=== PATIENT | female | born 1940 | race Caucasian/White ===

== ENCOUNTER 2018-10-22 14:43 | Inpatient (IN) ==
[2018-10-22] MEDS ORDERED: ONDANSETRON 4 MG/2 ML VIAL IV ONE (15:50)
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
[2018-10-22] MEDS ORDERED: 0.9 % SODIUM CHLORIDE 1,000 ML IV ONE (16:05)
[2018-10-22] MEDS: HYDROmorphone 2 MG/ML VIAL IV PRN ×2 (16:05→17:18)
[2018-10-22 16:42] LABS: Basophils # (Auto) 0 K/mcL (0.0-0.3); Basophils % (Auto) 0.3 % (0.0-2.0); Eosinophils # (Auto) 0 K/mcL (0.0-0.7); Eosinophils % (Auto) 0.1 % (0.0-7.0); Granulocytes % (Auto) 78.1 % (38.0-78.0); Hemoglobin 15.1 g/dL (12.0-15.0); Lymphocytes % (Auto) 14.1 % (15.5-49.0); Mean Cell Volume 94.9 fL (80.0-100.0); Mean Corpuscular HGB Conc 33.5 g/dL (31.0-36.0); Mean Platelet Volume 7.7 fL (7.4-10.4); Monocytes % (Auto) 7.4 % (1.0-12.0); Platelet Count 219 K/mcL (140-440); RBC 4.74 M/mcL (4.00-5.20); Red Cell Distribution Width 12.6 % (11.5-14.5); WBC 14.2 K/mcL (4.5-11.0)
[2018-10-22 17:01] LABS: ALT/SGPT 18 U/l (0-40); AST/SGOT 15 U/l (0-37); Albumin 3.6 gm/dL (3.2-5.2); Albumin/Globulin Ratio 1.2 (1.0-2.3); Alkaline Phosphatase 70 U/L (39-117); Bilirubin,Total 0.4 mg/dL (0.0-1.0); Blood Urea Nitrogen 15 mg/dl (8-23); C-Reactive Protein 10.7 mg/dl (0.0-0.8); Calcium 8.6 mg/dl (8.6-10.4); Carbon Dioxide 26 mmol/L (22-30); Chloride 99 mmol/L (96-108); Globulin 3.1 gm/dL (2.2-3.7); Glomerular Filtration Rate 84; Glucose 99 mg/dL (70-105)
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
[2018-10-22 19:43] LABS: Appearance,Urine CLEAR; Bacteria,Urine FEW /hpf (0); Bilirubin,Urine NEG (NEG); Color,Urine YELLOW; Culture Indicated,Urine YES; Glucose,Urine (UA) NEGATIVE (NEG); Ketones,Urine 5/TR mg/dL (NEG); Leukocyte Esterase,Urine 250 /uL (NEG); Mucus,Urine FEW /hpf (0); Nitrate,Urine NEG (NEG); Protein,Urine NEG (NEG); Specific Gravity,Urine 1.018 (1.000-1.035); Urine Blood 0.2 mg/dL (<0.03); Urine RBC 5 /hpf (0-1); Urine Squamous Epithelial Cell 3 /hpf (0-4); Urine Transitional Epi Cells < 1 /hpf (0-2); Urine WBC 18 /hpf (0-4); Urobilinogen,Urine NEG (NEG)
[2018-10-22] MEDS ORDERED: 0.9 % SODIUM CHLORIDE 1,000 ML IV SCH (19:46)
[2018-10-22] MEDS ORDERED: ACETAMINOPHEN 1,000 MG/100 ML BOTTLE IV PRN (19:46)
[2018-10-22] MEDS ORDERED: MAGNESIUM HYDROXIDE 30 ML ORAL.SUSP PO PRN (19:46)
[2018-10-22] MEDS ORDERED: ACETAMINOPHEN 325 MG TABLET PO PRN (19:46)
[2018-10-22] MEDS ORDERED: POTASSIUM CHLORIDE 20 MEQ PACKET PO PRN (19:46)
[2018-10-22] MEDS ORDERED: FLEETS ADULT ENEMA PR PRN (19:46)
[2018-10-22] MEDS ORDERED: MAGNESIUM SULFATE 2 GM/50 ML BAG IV PRN (19:46)
[2018-10-22] MEDS ORDERED: ONDANSETRON 4 MG/2 ML VIAL IV PRN (19:46)
[2018-10-22] MEDS ORDERED: HYDROcodone/APAP 5/325MG TABLET PO PRN (19:46)
[2018-10-22] MEDS ORDERED: SENNOSIDES/DOCUSATE SODIUM 1 TAB TABLET PO SCH (21:00)
[2018-10-22] MEDS: HEPARIN 5,000 UNIT/ML VIAL SQ SCH (21:01)
[2018-10-22] MEDS: CYANOCOBALAMIN (VITAMIN B-12) 500 MCG TABLET PO SCH (21:01)
[2018-10-22] MEDS: 0.9 % SODIUM CHLORIDE 10 ML SYRINGE IV SCH (21:02)
[2018-10-22] MEDS: DOCUSATE SODIUM 100 MG CAPSULE PO SCH (21:02)
[2018-10-23] MEDS: 0.9 % SODIUM CHLORIDE 10 ML SYRINGE IV SCH ×3 (05:39→20:45)
[2018-10-23 06:02] LABS: INR 1.1 (0.9-1.1); Prothrombin Time 14.2 sec (11.9-14.5)
[2018-10-23 06:21] LABS: ALT/SGPT 13 U/l (0-40); AST/SGOT 12 U/l (0-37); Albumin 2.8 gm/dL (3.2-5.2); Alkaline Phosphatase 68 U/L (39-117); Bilirubin,Direct < 0.2 mg/dL (0.0-0.3); Bilirubin,Total 0.5 mg/dL (0.0-1.0); Blood Urea Nitrogen 9 mg/dl (8-23); Calcium 8.3 mg/dl (8.6-10.4); Carbon Dioxide 24 mmol/L (22-30); Chloride 105 mmol/L (96-108); Globulin 2.8 gm/dL (2.2-3.7); Glomerular Filtration Rate 88; Glucose 99 mg/dL (70-105); Lactate Dehydrogenase 218 U/L (94-250); Phosphorous 3.1 mg/dL (2.7-4.5); Triglycerides 88 mg/dl (<150); Uric Acid 2.9 mg/dL (2.5-8.0)
[2018-10-23 07:46] LABS: Prealbumin 7.9 mg/dl (20-40)
[2018-10-23 07:48] LABS: Estimated Average Glucose(eAG) 123 mg/dL; Hemoglobin A1C 5.9 % HGB (4.0-6.0)
[2018-10-23 07:56] LABS: Thyroid Stimulating Hormone 0.78 uIU/ml (0.27-5.01)
[2018-10-23] MEDS: DOCUSATE SODIUM 100 MG CAPSULE PO SCH ×2 (08:34→20:44)
[2018-10-23] MEDS: CYANOCOBALAMIN (VITAMIN B-12) 500 MCG TABLET PO SCH ×2 (08:34→20:44)
[2018-10-23] MEDS: HEPARIN 5,000 UNIT/ML VIAL SQ SCH ×2 (08:49→20:44)
--- NOTE | 2018-10-23 08:52 | XRay Report ---
CLINICAL INFORMATION: pre-op COMPARISON: None. FINDINGS: Heart size, mediastinum and pulmonary vessels are normal. The lung volumes are elevated suggestive of COPD. Small bilateral pleural effusions noted. There is minor bibasilar atelectasis, but no shweta infiltrates IMPRESSION: Probable COPD and small bilateral pleural effusions. Interpreted and Authenticated by: Jasmeet Bianchi 10/23/18
[2018-10-23] MEDS ORDERED: FOLIC ACID 1 MG TABLET PO SCH (09:00)
[2018-10-23] MEDS ORDERED: THIAMINE 100 MG TABLET PO SCH (09:00)
[2018-10-23] MEDS ORDERED: MULTIVIT,THER IRON,CA,FA & MIN 1 TABLET PO SCH (09:00)
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
[2018-10-23] MEDS ORDERED: SILVER SULFADIAZINE CREAM.TOP 25GM TOPICAL ONE ×2 (11:49→14:11)
[2018-10-23] MEDS ORDERED: VANCOMYCIN 1,000 MG in 0.9 % SODIUM CHLORIDE 250 ML IV ONE (11:57)
[2018-10-23] MEDS ORDERED: LIDOCAINE HCL/PF 100 MG/5 ML SYRINGE IV ONE (12:05)
[2018-10-23] MEDS ORDERED: KETAMINE 100 MG/ML ML IV ONE (12:05)
[2018-10-23] MEDS ORDERED: GLYCOPYRROLATE 0.2 MG/ML VIAL IV ONE (12:05)
[2018-10-23] MEDS ORDERED: PROPOFOL 200 MG/20 ML VIAL IV ONE (12:05)
[2018-10-23] MEDS ORDERED: fentaNYL 100 MCG/2 ML VIAL IV ONE (12:05)
[2018-10-23] MEDS ORDERED: MIDAZOLAM 2 MG/2 ML VIAL IV ONE (12:05)
[2018-10-23] MEDS ORDERED: PHENYLEPHRINE 10 MG/ML VIAL IV ONE (12:05)
[2018-10-23] MEDS ORDERED: ONDANSETRON 4 MG/2 ML VIAL IV ONE (12:05)
[2018-10-23] MEDS: cefTRIAXone 1 GM VIAL IV ONE ×2 (12:40→14:14)
--- NOTE | 2018-10-23 12:56 | Brief Operative Note ---
Date of procedure: 10/23/18 Pre-op diagnosis: Infected knott Chest, arms and buttocks Post-op diagnosis: same Procedure: Surgical debridement and tissue swab for c/s. LEFT buttock and under Left breast Grafts/Implants: No Anesthesia: GLMA Findings: About 15 % 2nd degree knott involving Left anterior arm. / Chest wall, breast and Right anterior chest and breast. About 2 - 3 % 2nd degree knott mainly Left buttock and perineal area and 1 % Right perineal area, BURN areas are around External Genitalia and anal orifice Complications: none Surgeon: Davon Dillard Estimated blood loss (cc): 5 Specimens Removed/Pathology: other Condition: stable Disposition: PACU (Operation well tolerated.)
[2018-10-23] MEDS ORDERED: ONDANSETRON 4 MG/2 ML VIAL IV PRN ×2 (13:07→14:11)
[2018-10-23] MEDS ORDERED: ACETAMINOPHEN 1,000 MG/100 ML BOTTLE IV ONE (13:07)
[2018-10-23] MEDS ORDERED: IPRATROPIUM/ALBUTEROL 3 ML AMPUL.NEB NEB PRN (13:07)
[2018-10-23] MEDS ORDERED: KETOROLAC 15 MG/ML VIAL IV PRN (13:07)
[2018-10-23] MEDS ORDERED: fentaNYL 100 MCG/2 ML VIAL IV PRN (13:07)
[2018-10-23] MEDS ORDERED: HYDROmorphone 2 MG/ML VIAL IV PRN (13:07)
[2018-10-23] MEDS ORDERED: METOPROLOL TARTRATE 5 MG/5 ML VIAL IV PRN (13:07)
[2018-10-23] MEDS ORDERED: LACTATED RINGERS 1,000 ML IV SCH (13:15)
[2018-10-23] MEDS: MEPERIDINE 25 MG/ML SYRINGE IV PRN ×2 (13:25→13:31)
[2018-10-23] MEDS ORDERED: POTASSIUM CHLORIDE 20 MEQ PACKET PO PRN (14:11)
[2018-10-23] MEDS ORDERED: MAGNESIUM SULFATE 2 GM/50 ML BAG IV PRN (14:11)
[2018-10-23] MEDS ORDERED: FLEETS ADULT ENEMA PR PRN (14:11)
[2018-10-23] MEDS ORDERED: ACETAMINOPHEN 325 MG TABLET PO PRN (14:11)
[2018-10-23] MEDS: 0.9 % SODIUM CHLORIDE 1,000 ML IV SCH (14:20)
[2018-10-23] MEDS: HYDROcodone/APAP 5/325MG TABLET PO PRN (18:55)
[2018-10-23] MEDS: SENNOSIDES/DOCUSATE SODIUM 1 TAB TABLET PO SCH (20:44)
[2018-10-23] MEDS: ACETAMINOPHEN 1,000 MG/100 ML BOTTLE IV PRN (20:45)
[2018-10-23] MEDS ORDERED: MAGNESIUM HYDROXIDE 30 ML ORAL.SUSP PO PRN (21:00)
[2018-10-24] MEDS: 0.9 % SODIUM CHLORIDE 10 ML SYRINGE IV SCH ×3 (04:30→20:05)
[2018-10-24] MEDS: MULTIVIT,THER IRON,CA,FA & MIN 1 TABLET PO SCH (08:16)
[2018-10-24] MEDS: CYANOCOBALAMIN (VITAMIN B-12) 500 MCG TABLET PO SCH ×2 (08:16→20:04)
[2018-10-24] MEDS: ASCORBIC ACID 500 MG TABLET PO SCH (08:16)
[2018-10-24] MEDS: THIAMINE 100 MG TABLET PO SCH (08:16)
[2018-10-24] MEDS: FOLIC ACID 1 MG TABLET PO SCH (08:16)
[2018-10-24] MEDS: DOCUSATE SODIUM 100 MG CAPSULE PO SCH ×2 (08:16→20:04)
[2018-10-24] MEDS: ZINC SULFATE 50 MG CAPSULE PO SCH (08:16)
[2018-10-24] MEDS: HEPARIN 5,000 UNIT/ML VIAL SQ SCH ×2 (08:17→20:04)
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
[2018-10-24] MEDS: 0.9 % SODIUM CHLORIDE 1,000 ML IV SCH (10:45)
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
[2018-10-24 15:25] LABS: Blood Urea Nitrogen 12 mg/dl (8-23); Carbon Dioxide 25 mmol/L (22-30); Chloride 103 mmol/L (96-108); Glomerular Filtration Rate 88; Glucose 175 mg/dL (70-105)
[2018-10-24 18:51] LABS: Appearance,Urine CLEAR; Bilirubin,Urine NEG (NEG); Color,Urine YELLOW; Culture Indicated,Urine NO; Glucose,Urine (UA) NEGATIVE (NEG); Ketones,Urine 5/TR mg/dL (NEG); Leukocyte Esterase,Urine NEG /uL (NEG); Nitrate,Urine NEG (NEG); Protein,Urine NEG (NEG); Specific Gravity,Urine 1.011 (1.000-1.035); Urine Blood NEG mg/dL (<0.03); Urobilinogen,Urine NEG (NEG)
[2018-10-24] MEDS: SENNOSIDES/DOCUSATE SODIUM 1 TAB TABLET PO SCH (20:04)
[2018-10-24] MEDS: ACETAMINOPHEN 1,000 MG/100 ML BOTTLE IV PRN (20:05)
[2018-10-25] MEDS: 0.9 % SODIUM CHLORIDE 10 ML SYRINGE IV SCH ×3 (04:13→21:23)
[2018-10-25 05:45] LABS: Basophils # (Auto) 0.1 K/mcL (0.0-0.3); Basophils % (Auto) 0.7 % (0.0-2.0); Eosinophils # (Auto) 0.2 K/mcL (0.0-0.7); Eosinophils % (Auto) 2.5 % (0.0-7.0); Granulocytes % (Auto) 53.9 % (38.0-78.0); Hematocrit 37.7 % (36.0-48.0); Hemoglobin 12.5 g/dL (12.0-15.0); Lymphocytes # (Auto) 2.3 K/mcL (1.5-4.8); Lymphocytes % (Auto) 32.2 % (15.5-49.0); Mean Cell Volume 95.4 fL (80.0-100.0); Mean Corpuscular HGB Conc 33.3 g/dL (31.0-36.0); Mean Platelet Volume 7.6 fL (7.4-10.4); Monocytes # (Auto) 0.8 K/mcL (0.1-0.9); Monocytes % (Auto) 10.7 % (1.0-12.0); Platelet Count 231 K/mcL (140-440); RBC 3.95 M/mcL (4.00-5.20); Red Cell Distribution Width 12.7 % (11.5-14.5); WBC 7.2 K/mcL (4.5-11.0)
[2018-10-25 05:59] LABS: Prealbumin 6.7 mg/dl (20-40)
[2018-10-25 06:02] LABS: C-Reactive Protein 10.1 mg/dl (0.0-0.8)
[2018-10-25] MEDS: 0.9 % SODIUM CHLORIDE 1,000 ML IV SCH (07:08)
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
[2018-10-25] MEDS ORDERED: SILVER SULFADIAZINE CREAM.TOP 25GM TOPICAL SCH (09:00)
[2018-10-25] MEDS: DOCUSATE SODIUM 100 MG CAPSULE PO SCH ×2 (09:11→19:41)
[2018-10-25] MEDS: CYANOCOBALAMIN (VITAMIN B-12) 500 MCG TABLET PO SCH ×2 (09:30→21:23)
[2018-10-25] MEDS: MULTIVIT,THER IRON,CA,FA & MIN 1 TABLET PO SCH (09:30)
[2018-10-25] MEDS: HYDROcodone/APAP 5/325MG TABLET PO PRN ×2 (09:31→21:23)
[2018-10-25] MEDS: ZINC SULFATE 50 MG CAPSULE PO SCH (09:31)
[2018-10-25] MEDS: ASCORBIC ACID 500 MG TABLET PO SCH (09:31)
[2018-10-25] MEDS: FOLIC ACID 1 MG TABLET PO SCH (09:31)
[2018-10-25] MEDS: THIAMINE 100 MG TABLET PO SCH (09:32)
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
[2018-10-25] MEDS: SILVER SULFADIAZINE CREAM.TOP 400GM TOPICAL SCH (10:48)
[2018-10-25] MEDS: HEPARIN 5,000 UNIT/ML VIAL SQ SCH ×2 (16:35→21:23)
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
[2018-10-25] MEDS: SENNOSIDES/DOCUSATE SODIUM 1 TAB TABLET PO SCH (19:41)
[2018-10-25] MEDS: OXANDROLONE 2.5 MG TABLET PO SCH (21:23)
[2018-10-26] MEDS: 0.9 % SODIUM CHLORIDE 10 ML SYRINGE IV SCH ×3 (04:26→21:43)
[2018-10-26] MEDS: HYDROcodone/APAP 5/325MG TABLET PO PRN ×4 (04:26→22:41)
[2018-10-26] MEDS: HEPARIN 5,000 UNIT/ML VIAL SQ SCH ×2 (09:26→21:44)
[2018-10-26] MEDS: ASCORBIC ACID 500 MG TABLET PO SCH (09:26)
[2018-10-26] MEDS: THIAMINE 100 MG TABLET PO SCH (09:28)
[2018-10-26] MEDS: CYANOCOBALAMIN (VITAMIN B-12) 500 MCG TABLET PO SCH ×2 (09:28→21:42)
[2018-10-26] MEDS: FOLIC ACID 1 MG TABLET PO SCH (09:29)
[2018-10-26] MEDS: MULTIVIT,THER IRON,CA,FA & MIN 1 TABLET PO SCH (09:29)
[2018-10-26] MEDS: DOCUSATE SODIUM 100 MG CAPSULE PO SCH ×2 (09:29→21:44)
[2018-10-26] MEDS: SILVER SULFADIAZINE CREAM.TOP 400GM TOPICAL SCH (09:30)
[2018-10-26] MEDS: ZINC SULFATE 50 MG CAPSULE PO SCH (09:30)
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
[2018-10-26] MEDS: OXANDROLONE 2.5 MG TABLET PO SCH ×2 (13:08→21:42)
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
[2018-10-26 17:42] LABS: Blood Urea Nitrogen 18 mg/dl (8-23); Carbon Dioxide 29 mmol/L (22-30); Chloride 99 mmol/L (96-108); Glomerular Filtration Rate 84; Glucose 121 mg/dL (70-105)
[2018-10-26] MEDS: SENNOSIDES/DOCUSATE SODIUM 1 TAB TABLET PO SCH (21:44)
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
[2018-10-26] MEDS ORDERED: CEFEPIME 1 GM VIAL ONE (22:55)
[2018-10-26] MEDS: CEFEPIME 2 GM VIAL IV SCH (23:08)
[2018-10-27 07:00] LABS: Basophils # (Auto) 0 K/mcL (0.0-0.3); Basophils % (Auto) 0.6 % (0.0-2.0); Eosinophils # (Auto) 0.2 K/mcL (0.0-0.7); Eosinophils % (Auto) 2.9 % (0.0-7.0); Hematocrit 36.8 % (36.0-48.0); Hemoglobin 12.3 g/dL (12.0-15.0); Lymphocytes # (Auto) 3.4 K/mcL (1.5-4.8); Lymphocytes % (Auto) 42.9 % (15.5-49.0); Mean Cell Volume 95.1 fL (80.0-100.0); Mean Corpuscular HGB Conc 33.4 g/dL (31.0-36.0); Mean Platelet Volume 7.3 fL (7.4-10.4); Monocytes # (Auto) 0.7 K/mcL (0.1-0.9); Monocytes % (Auto) 8.6 % (1.0-12.0); Platelet Count 280 K/mcL (140-440); RBC 3.87 M/mcL (4.00-5.20); Red Cell Distribution Width 12.9 % (11.5-14.5)
[2018-10-27] MEDS: CEFEPIME 2 GM VIAL IV SCH ×2 (07:40→14:01)
[2018-10-27] MEDS: 0.9 % SODIUM CHLORIDE 10 ML SYRINGE IV SCH ×2 (07:47→14:03)
[2018-10-27] MEDS: ZINC SULFATE 50 MG CAPSULE PO SCH (08:23)
[2018-10-27] MEDS: FOLIC ACID 1 MG TABLET PO SCH (08:23)
[2018-10-27] MEDS: DOCUSATE SODIUM 100 MG CAPSULE PO SCH (08:24)
[2018-10-27] MEDS: MULTIVIT,THER IRON,CA,FA & MIN 1 TABLET PO SCH (08:25)
[2018-10-27] MEDS: CYANOCOBALAMIN (VITAMIN B-12) 500 MCG TABLET PO SCH (08:25)
[2018-10-27] MEDS: ASCORBIC ACID 500 MG TABLET PO SCH (08:25)
[2018-10-27] MEDS: THIAMINE 100 MG TABLET PO SCH (08:25)
[2018-10-27] MEDS: HEPARIN 5,000 UNIT/ML VIAL SQ SCH (08:26)
[2018-10-27] MEDS: HYDROcodone/APAP 5/325MG TABLET PO PRN (08:31)
[2018-10-27] MEDS: OXANDROLONE 2.5 MG TABLET PO SCH (08:40)
[2018-10-27] MEDS: SILVER SULFADIAZINE CREAM.TOP 400GM TOPICAL SCH (09:30)
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
== END 2018-10-27 16:08 | disposition swing bed (61) | DRG 935 ==
LOC: ED 14:43 → MEDSUR 19:38
PROVIDERS: ADMIT Internal Medicine; ATTEND Internal Medicine

== ENCOUNTER 2022-12-05 13:27 | Inpatient (IN) ==
[2022-12-05] MEDS ORDERED: HYDROcodone/APAP 5/325MG TABLET PO PRN (16:22)
[2022-12-05] MEDS ORDERED: morphine 4 MG/ML VIAL IV PRN ×2 (16:22→22:23)
[2022-12-05] MEDS ORDERED: traZODone HCL 50 MG TABLET PO PRN (16:22)
[2022-12-05] MEDS ORDERED: IPRATROPIUM/ALBUTEROL 3 ML AMPUL.NEB NEB PRN ×2 (16:22→21:46)
[2022-12-05] MEDS ORDERED: ONDANSETRON 4 MG/2 ML VIAL IV PRN ×2 (16:22→21:46)
[2022-12-05] MEDS ORDERED: ACETAMINOPHEN 325 MG TABLET PO PRN (16:22)
[2022-12-05] MEDS: NICOTINE 21 MG PATCH TOPICAL SCH (18:34)
[2022-12-05] MEDS: 0.9 % SODIUM CHLORIDE 1,000 ML IV SCH (19:01)
[2022-12-05] MEDS ORDERED: MAGNESIUM SULFATE 2 GM/50 ML BAG IV ONE (20:37)
[2022-12-05] MEDS ORDERED: PROPOFOL 200 MG/20 ML VIAL IV ONE (20:37)
[2022-12-05] MEDS ORDERED: DEXAMETHASONE 10 MG/ML VIAL ONE (20:37)
[2022-12-05] MEDS ORDERED: LIDOCAINE 2% PF 5 ML VIAL ONE (20:37)
[2022-12-05] MEDS ORDERED: ONDANSETRON 4 MG/2 ML VIAL ONE (20:37)
[2022-12-05] MEDS ORDERED: KETAMINE 50 MG/ML Syringe IV ONE (20:37)
[2022-12-05] MEDS ORDERED: ceFAZolin 2 GM in DEXTROSE 5% IN WATER 50 ML IV SCH (21:00)
[2022-12-05] MEDS ORDERED: SENNOSIDES 1 TABLET PO SCH (21:00)
[2022-12-05] MEDS ORDERED: DOCUSATE SODIUM 100 MG CAPSULE PO SCH (21:00)
[2022-12-05] MEDS ORDERED: ePHEDrine 50 MG/5 ML SYRINGE (ANEST) IV ONE (21:16)
[2022-12-05] MEDS ORDERED: METHOCARBAMOL 1,000 MG/10 ML VIAL IV PRN (21:46)
[2022-12-05] MEDS ORDERED: fentaNYL 100 MCG/2 ML VIAL IV PRN (21:46)
[2022-12-05] MEDS ORDERED: PROMETHAZINE 25 MG/ML VIAL IV PRN (21:46)
[2022-12-05] MEDS ORDERED: MEPERIDINE 25 MG/ML VIAL IV PRN (21:46)
[2022-12-05] MEDS ORDERED: LACTATED RINGERS 250 ML IV PRN (21:46)
[2022-12-05] MEDS ORDERED: ACETAMINOPHEN 1,000 MG/100 ML BAG IV ONE ×2 (21:46→22:22)
[2022-12-05] MEDS ORDERED: NALOXONE HCL 0.4 MG/ML VIAL IV PRN (21:46)
[2022-12-05] MEDS ORDERED: LACTATED RINGERS 1,000 ML IV SCH (22:00)
[2022-12-05] MEDS ORDERED: BISACODYL 10 MG SUPP.RECT PR PRN (22:23)
[2022-12-05] MEDS ORDERED: ONDANSETRON 4 MG ODT TABLET SL PRN (22:23)
[2022-12-05] MEDS ORDERED: POLYETHYLENE GLYCOL 3350 17 GM PACKET PO PRN (22:23)
[2022-12-05] MEDS ORDERED: MAGNESIUM HYDROXIDE 30 ML ORAL.SUSP PO PRN (22:23)
[2022-12-05] MEDS ORDERED: METHOCARBAMOL 750 MG TABLET PO PRN (22:23)
[2022-12-05] MEDS ORDERED: FLEETS ADULT ENEMA PR PRN (22:23)
[2022-12-05] MEDS ORDERED: BENZOCAINE/MENTHOL 1 LOZENGE PO PRN (22:23)
[2022-12-06] MEDS: 0.9 % SODIUM CHLORIDE 10 ML SYRINGE IV SCH ×4 (01:07→20:19)
[2022-12-06] MEDS: ceFAZolin 2 GM in DEXTROSE 5% IN WATER 50 ML IV SCH ×2 (01:10→16:27)
[2022-12-06] MEDS: 0.9 % SODIUM CHLORIDE 1,000 ML IV SCH ×2 (03:30→13:18)
[2022-12-06 07:23] LABS: ALT/SGPT 11 U/L (<40); AST/SGOT 26 U/L (<32); Albumin 3.3 gm/dL (3.2-5.2); Albumin/Globulin Ratio 1.3 (1.0-2.3); Alkaline Phosphatase 56 U/L (39-117); Bilirubin,Total 0.4 mg/dL (0.1-1.0); Blood Urea Nitrogen 12 mg/dL (8-23); Calcium 8.4 mg/dL (8.6-10.4); Carbon Dioxide 22 mmol/L (22-30); Chloride 104 mmol/L (96-108); Globulin 2.6 gm/dL (2.2-3.7); Glomerular Filtration Rate 85; Glucose 144 mg/dL (70-105)
[2022-12-06 08:06] LABS: Basophils # (Auto) 0.01 K/mcL (0.00-0.30); Basophils % (Auto) 0.1 % (0.0-2.0); Eosinophils # (Auto) 0 K/mcL (0.00-0.70); Eosinophils % (Auto) 0 % (0.0-7.0); Hematocrit 38.8 % (34.1-44.9); Hemoglobin 12.9 g/dL (11.2-15.7); Lymphocytes # (Auto) 0.94 K/mcL (1.50-4.80); Lymphocytes % (Auto) 12.9 % (15.5-49.0); Mean Cell Volume 93.5 fL (80.0-100.0); Mean Corpuscular HGB Conc 33.2 g/dL (31.0-36.0); Mean Platelet Volume 9.6 fL (8.8-12.5); Monocytes # (Auto) 0.24 K/mcL (0.10-0.90); Monocytes % (Auto) 3.3 % (1.0-12.0); Neutrophils % (Auto) 83.2 % (38.0-78.0); Platelet Count 148 K/mcL (140-440); RBC 4.15 M/mcL (3.59-5.38); Red Cell Distribution Width 13.4 % (11.5-14.5); WBC 7.3 K/mcL (4.5-11.0)
[2022-12-06] MEDS: DOCUSATE SODIUM 100 MG CAPSULE PO SCH ×2 (08:12→20:19)
[2022-12-06] MEDS: ASPIRIN 81 MG TAB.CHEW PO SCH ×2 (08:12→20:19)
[2022-12-06] MEDS: ceFAZolin 1 GM VIAL IV SCH ×2 (08:12→16:07)
[2022-12-06] MEDS: NICOTINE 21 MG PATCH TOPICAL SCH (09:50)
[2022-12-06] MEDS: HYDROcodone/APAP 10/325MG TABLET PO PRN ×2 (14:59→21:50)
[2022-12-06] MEDS: SENNOSIDES 1 TABLET PO SCH (20:19)
[2022-12-07] MEDS: 0.9 % SODIUM CHLORIDE 10 ML SYRINGE IV SCH ×3 (05:13→21:24)
[2022-12-07 08:06] LABS: Basophils # (Auto) 0.05 K/mcL (0.00-0.30); Basophils % (Auto) 0.5 % (0.0-2.0); Eosinophils # (Auto) 0.03 K/mcL (0.00-0.70); Eosinophils % (Auto) 0.3 % (0.0-7.0); Hematocrit 37.3 % (34.1-44.9); Hemoglobin 12.2 g/dL (11.2-15.7); Lymphocytes # (Auto) 3.16 K/mcL (1.50-4.80); Lymphocytes % (Auto) 31.1 % (15.5-49.0); Mean Cell Volume 96.4 fL (80.0-100.0); Mean Corpuscular HGB Conc 32.7 g/dL (31.0-36.0); Mean Platelet Volume 10.3 fL (8.8-12.5); Monocytes # (Auto) 0.91 K/mcL (0.10-0.90); Neutrophils % (Auto) 58.7 % (38.0-78.0); Platelet Count 151 K/mcL (140-440); RBC 3.87 M/mcL (3.59-5.38); Red Cell Distribution Width 13.8 % (11.5-14.5); WBC 10.2 K/mcL (4.5-11.0)
[2022-12-07] MEDS: VITAMIN E (DL,TOCOPHERYL ACET) 400 UNIT CAPSULE PO SCH (08:30)
[2022-12-07] MEDS: DOCUSATE SODIUM 100 MG CAPSULE PO SCH ×2 (08:31→21:24)
[2022-12-07] MEDS: ASPIRIN 81 MG TAB.CHEW PO SCH ×2 (08:31→21:24)
[2022-12-07 08:33] LABS: ALT/SGPT 8 U/L (<40); AST/SGOT 24 U/L (<32); Albumin/Globulin Ratio 1.3 (1.0-2.3); Alkaline Phosphatase 48 U/L (39-117); Bilirubin,Total 0.4 mg/dL (0.1-1.0); Blood Urea Nitrogen 16 mg/dL (8-23); Calcium 8.1 mg/dL (8.6-10.4); Carbon Dioxide 23 mmol/L (22-30); Chloride 105 mmol/L (96-108); Globulin 2.4 gm/dL (2.2-3.7); Glomerular Filtration Rate 81; Glucose 92 mg/dL (70-105)
[2022-12-07] MEDS: NICOTINE 21 MG PATCH TOPICAL SCH (09:31)
[2022-12-07] MEDS ORDERED: FLUZONE HD QS2023-24/PF 240 MCG/0.7 ML SYRINGE IM ONE (10:00)
[2022-12-07] MEDS: SENNOSIDES 1 TABLET PO SCH (21:24)
[2022-12-08 07:08] LABS: Basophils # (Auto) 0.08 K/mcL (0.00-0.30); Basophils % (Auto) 1.1 % (0.0-2.0); Eosinophils # (Auto) 0.11 K/mcL (0.00-0.70); Eosinophils % (Auto) 1.5 % (0.0-7.0); Hematocrit 39.9 % (34.1-44.9); Hemoglobin 12.7 g/dL (11.2-15.7); Lymphocytes # (Auto) 1.92 K/mcL (1.50-4.80); Lymphocytes % (Auto) 26.1 % (15.5-49.0); Mean Cell Volume 96.4 fL (80.0-100.0); Mean Corpuscular HGB Conc 31.8 g/dL (31.0-36.0); Mean Platelet Volume 10.2 fL (8.8-12.5); Monocytes # (Auto) 0.64 K/mcL (0.10-0.90); Monocytes % (Auto) 8.7 % (1.0-12.0); Neutrophils % (Auto) 62.2 % (38.0-78.0); Platelet Count 155 K/mcL (140-440); RBC 4.14 M/mcL (3.59-5.38); Red Cell Distribution Width 13.7 % (11.5-14.5); WBC 7.4 K/mcL (4.5-11.0)
[2022-12-08 07:59] LABS: ALT/SGPT 8 U/L (<40); AST/SGOT 20 U/L (<32); Albumin 3.2 gm/dL (3.2-5.2); Albumin/Globulin Ratio 1.4 (1.0-2.3); Alkaline Phosphatase 55 U/L (39-117); Bilirubin,Total 0.7 mg/dL (0.1-1.0); Blood Urea Nitrogen 12 mg/dL (8-23); Calcium 8.2 mg/dL (8.6-10.4); Carbon Dioxide 25 mmol/L (22-30); Chloride 105 mmol/L (96-108); Globulin 2.3 gm/dL (2.2-3.7); Glomerular Filtration Rate 91; Glucose 85 mg/dL (70-105)
[2022-12-08] MEDS: ASPIRIN 81 MG TAB.CHEW PO SCH (09:03)
[2022-12-08] MEDS: 0.9 % SODIUM CHLORIDE 10 ML SYRINGE IV SCH (09:03)
[2022-12-08] MEDS: VITAMIN E (DL,TOCOPHERYL ACET) 400 UNIT CAPSULE PO SCH (09:03)
[2022-12-08] MEDS: DOCUSATE SODIUM 100 MG CAPSULE PO SCH (09:03)
[2022-12-08] MEDS: NICOTINE 21 MG PATCH TOPICAL SCH (09:06)
== END 2022-12-08 13:05 | DRG 494 ==
LOC: MEDSUR 16:00
PROVIDERS: ADMIT Internal Medicine; ATTEND Internal Medicine